=== PATIENT | female | born 1955 | race Caucasian/White ===

== ENCOUNTER 2018-01-29 10:56 | Day surgery (SDC) | payer OTHER ==
[~2018-01-29 10:56] MED LIST: BUPIVACAINE /PF 0.25% 30 ML VIAL INJ ONE; ISOVUE-300 (IOPAMIDOL) 100 ML INFUS..BTL IV ONE; LIDOCAINE PF 2%, 200 MG/10 ML AMPUL.LUER (EPIDURAL) INJ ONE; NS 50 ML BAG IV ONE; methylPREDNISolone ACETATE 80 MG/ML ONE
[2018-01-29] MEDS ORDERED: DIPHENHYDRAMINE INJ 50 MG/ML VIAL ONE ×2 (12:02→12:06)
[2018-01-29] MEDS ORDERED: MIDAZOLAM HCL 5 MG/5 ML VIAL ONE (12:02)
[2018-01-29] MEDS ORDERED: IOHEXOL 50 ML IV ONE (12:17)
[2018-01-29 14:09] VITALS: BP_SYST 121
[2018-01-29] MEDS ORDERED: MIDAZOLAM HCL 2 MG/2 ML VIAL (VERSED) IVP ONE (17:45)
[2018-01-29] MEDS ORDERED: LR 500 ML IV ONE (17:45)
[2018-01-29] MEDS ORDERED: DIPHENHYDRAMINE INJ 50 MG/ML VIAL IVP ONE (17:45)
== END 2018-01-29 14:00 | disposition home or self-care (01) ==
LOC: SDS 10:56 → SMU 11:58 → EDSEX 12:30 → SDS 14:00
PROVIDERS: ATTEND Internal Medicine
DX: M51.16 Intervertebral disc disorders with radiculopathy, lumbar region (principal); I10 Essential (primary) hypertension; Z90.710 Acquired absence of both cervix and uterus; Z98.890 Other specified postprocedural states; Z80.9 Family history of malignant neoplasm, unspecified; M79.1 Myalgia; M54.5 Low back pain
CPT/HCPCS: 62323; 82962; J1040; J1200; J2001; J2250; J3490; J7120; Q9967; 77003